=== PATIENT | female | born 1950 | race African-American/Black ===

== ENCOUNTER 2023-11-18 00:53 | Emergency (ER) | payer MEDICARE, OTHER ==
[~2023-11-18] VITALS: Ht 152.4 cm; Wt 68.0 kg
[2023-11-18 02:08] LABS: BASOPHILS % (AUTO) 0.1 % (0.0-2.0); EOSINOPHILS # (AUTO) 0.1 K/uL (0.0-0.7); EOSINOPHILS % (AUTO) 1.1 % (0.0-6.0); HEMATOCRIT 41 % (33-45); HEMOGLOBIN 13.6 g/dL (11.5-14.8); LYMPHOCYTES % (AUTO) 17.1 % (20.0-44.0); MEAN CORPUSCULAR HEMOGLOBIN 33 PG (26.0-33.0); MEAN CORPUSCULAR HGB CONC 33 g/dl (31.0-36.0); MEAN CORPUSCULAR VOLUME 100 fL (82-100); MONOCYTES # (AUTO) 0.4 K/uL (0.1-1.30); MONOCYTES % (AUTO) 6.2 % (2.0-12.0); NEUTROPHILS # (AUTO) 4.4 K/uL (1.8-8.9); NEUTROPHILS % (AUTO) 75.5 % (43.0-81.0); PLATELET COUNT (AUTO) 241 K/uL (150-450); RED BLOOD CELL COUNT(AUTO) 4.16 MIL/uL (4.0-5.2); RED CELL DISTRIBUTION WIDTH 13.4 % (11.5-15.0); WHITE BLOOD COUNT (AUTO) 5.8 K/uL (4.3-11.0)
[2023-11-18 02:22] LABS: ALANINE AMINOTRANSFERASE 40 U/L (12-78); ALBUMIN 3.5 g/dL (3.4-5.0); ALKALINE PHOSPHATASE 89 U/L (46-116); ASPARTATE AMINOTRANSFERASE 25 U/L (15-37); BILIRUBIN,TOTAL 0.6 mg/dL (0.2-1.0); CALCIUM, SERUM 9.6 mg/dL (8.5-10.1); CARBON DIOXIDE 21 mmol/L (21-32); CHLORIDE 99 mmol/L (98-107); CREATININE 1.1 mg/dL (0.6-1.3); GLUCOSE 202 mg/dL (74-106); SODIUM SERUM 135 mmol/L (136-145); TOTAL PROTEIN, SERUM 7.5 g/dL (6.4-8.2); UREA NITROGEN, BLOOD 7 mg/dL (7-18)
[2023-11-18 02:23] LABS: POTASSIUM 2.7 mmol/L (3.5-5.1)
[2023-11-18] MEDS ORDERED: POTASSIUM CL. PREMIX PERIPHER. 100 ML ONE (02:48)
[2023-11-18 02:49] LABS: ADD URINE CULTURE NO; APPEARANCE,URINE CLEAR (CLEAR); BACTERIA,URINE None seen /HPF (None Seen); BILIRUBIN,URINE NEGATIVE (NEGATIVE); BLOOD, URINE TRACE-INTA Ery/uL (NEGATIVE); COLOR,URINE YELLOW (YELLOW); KETONES,URINE 1+ mg/dL (NEGATIVE); LEUKOCYTE ESTERASE ,URINE NEGATIVE (NEGATIVE); NITRITE, URINE NEGATIVE (NEGATIVE); PH,URINE 6.5 (5.0-8.0); PROTEIN,URINE NEGATIVE (NEGATIVE); RBC,URINE 0-2 /HPF (0-2); SQUAMOUS EPITHELIAL CELL,UR Few /HPF (None Seen); UGLUCOSE NEGATIVE (NEGATIVE); UROBILINOGEN,URINE 0.2 EU/dL (0.2); WBC,URINE 0-2 /HPF (0-3)
[2023-11-18 02:54] LABS: ALCOHOL, BLOOD < 3 mg/dL (0-10)
[2023-11-18] MEDS: POTASSIUM CL. PREMIX PERIPHER. 50 ML IV SCH (03:10)
[2023-11-18] MEDS ORDERED: ALPR0.25 PO (04:54)
[2023-11-18] MEDS ORDERED: ALPRAZOLAM 0.25 MG TABLET ONE (05:17)
[2023-11-18] MEDS: ALPRAZOLAM 0.25 MG TABLET PO ONE (05:32)
[2023-11-18 06:23] VITALS: BP 139/80; TEMP 98.9; O2SAT 98
== END 2023-11-18 06:24 | disposition home or self-care (01) ==
LOC: ER 01:00
DX: F41.9 Anxiety disorder, unspecified (principal); E87.6 Hypokalemia; F32.A Depression, unspecified
CPT/HCPCS: 99284; 96365; 96366; 85025; 83735; 81001; 36415; 80053; 80320; J7030; J3480; A4223; G0480

== ENCOUNTER 2023-12-25 16:41 | Inpatient (IN) | payer MEDICARE, OTHER ==
[~2023-12-25] VITALS: Ht 152.4 cm; Wt 58.5 kg
[2023-12-25] MEDS ORDERED: ONDANSETRON HCL/PF 4 MG/2 ML VIAL ONE (17:41)
[2023-12-25] MEDS: IV NS 0.9% 1,000 ML BAG IV ONE (18:13)
[2023-12-25] MEDS ORDERED: CEFTRIAXONE 1GM BAG (ER ONLY) 50 ML IV ONE (18:14)
[2023-12-25] MEDS: CEFTRIAXONE 1GM BAG (ER ONLY) 50 ML IV ONE (18:16)
[2023-12-25] MEDS ORDERED: ESZO3TAB27 PO (18:24)
[2023-12-25] MEDS ORDERED: FLUO20CA36 PO (18:24)
[2023-12-25] MEDS ORDERED: ALPR1TAB2 PO (18:24)
[2023-12-25 18:25] LABS: BASOPHILS % (AUTO) 0.3 % (0.0-2.0); EOSINOPHILS % (AUTO) 0.1 % (0.0-6.0); HEMATOCRIT 42 % (33-45); HEMOGLOBIN 14.3 g/dL (11.5-14.8); LYMPHOCYTES % (AUTO) 20.9 % (20.0-44.0); MEAN CORPUSCULAR HEMOGLOBIN 32 PG (26.0-33.0); MEAN CORPUSCULAR HGB CONC 34 g/dl (31.0-36.0); MEAN CORPUSCULAR VOLUME 95 fL (82-100); MONOCYTES # (AUTO) 0.4 K/uL (0.1-1.30); MONOCYTES % (AUTO) 7.5 % (2.0-12.0); NEUTROPHILS # (AUTO) 3.5 K/uL (1.8-8.9); NEUTROPHILS % (AUTO) 71.2 % (43.0-81.0); PLATELET COUNT (AUTO) 246 K/uL (150-450); RED BLOOD CELL COUNT(AUTO) 4.45 MIL/uL (4.0-5.2); RED CELL DISTRIBUTION WIDTH 14.7 % (11.5-15.0)
[2023-12-25 18:40] LABS: CALCIUM, SERUM 9.3 mg/dL (8.5-10.1); CARBON DIOXIDE 22 mmol/L (21-32); CHLORIDE 101 mmol/L (98-107); CREATININE 1.1 mg/dL (0.6-1.3); GLUCOSE 137 mg/dL (74-106); POTASSIUM 4.2 mmol/L (3.5-5.1); SODIUM SERUM 133 mmol/L (136-145); UREA NITROGEN, BLOOD 11 mg/dL (7-18)
[2023-12-25] MEDS: AZITHROMYCIN 500 MG in IV D5W 250 ML IV ONE (18:43)
[2023-12-25 18:44] LABS: INR 1.01 (0.91-1.10); PARTIAL THROMBOPLASTIN TIME 21.4 SEC (24.3-34.3); PROTHROMBIN TIME 10.4 SECS (9.2-11.1)
[2023-12-25 18:50] LABS: LACTIC ACID 2.5 mmol/L (0.4-2.0)
[2023-12-25 18:52] LABS: ALANINE AMINOTRANSFERASE 69 U/L (12-78); ALBUMIN 3.1 g/dL (3.4-5.0); ALKALINE PHOSPHATASE 118 U/L (46-116); ASPARTATE AMINOTRANSFERASE 86 U/L (15-37); BILIRUBIN,DIRECT 0.1 mg/dL (0.0-0.2); TOTAL PROTEIN, SERUM 7.8 g/dL (6.4-8.2)
[2023-12-25 22:49] LABS: APPEARANCE,URINE CLEAR (CLEAR); BILIRUBIN,URINE NEGATIVE (NEGATIVE); BLOOD, URINE NEGATIVE Ery/uL (NEGATIVE); COLOR,URINE YELLOW (YELLOW); KETONES,URINE NEGATIVE (NEGATIVE); LEUKOCYTE ESTERASE ,URINE NEGATIVE (NEGATIVE); NITRITE, URINE NEGATIVE (NEGATIVE); PH,URINE 6.5 (5.0-8.0); PROTEIN,URINE NEGATIVE (NEGATIVE); UGLUCOSE NEGATIVE (NEGATIVE); UROBILINOGEN,URINE 0.2 EU/dL (0.2)
[2023-12-26] VITALS: BP 132/61; TEMP 99.9; O2SAT 95
[2023-12-26] MEDS ORDERED: AZITHROMYCIN 250 MG TABLET PO ONE (00:30)
[2023-12-26] MEDS ORDERED: Z GUARD REMEDY 4 OZ OINT TP PRN (00:30)
[2023-12-26] MEDS: ALPRAZOLAM 1 MG TABLET PO PRN (00:52)
[2023-12-26] MEDS: ENOXAPARIN SODIUM 40 MG/0.4 ML DISP.SYRIN SQ SCH (00:52)
[2023-12-26 04:00] VITALS: BP 100/52; TEMP 99.1; O2SAT 94
[2023-12-26] MEDS: PANTOPRAZOLE 40 MG TABLET.DR PO SCH (07:45)
[2023-12-26 08:00] VITALS: BP 126/74; TEMP 99.1; O2SAT 93
[2023-12-26] MEDS: GUAIFENESIN LA 600 MG TABLET.SA PO SCH (08:50)
[2023-12-26] MEDS: FLUOXETINE HCL 20 MG CAPSULE PO SCH (08:50)
[2023-12-26] MEDS: AZITHROMYCIN 250 MG TABLET PO SCH (08:50)
[2023-12-26 13:00] VITALS: BP 119/75; TEMP 98.5; O2SAT 94
[2023-12-26 21:00] VITALS: BP 137/69; TEMP 98.2; O2SAT 92
[2023-12-26] MEDS: CEFTRIAXONE 1 G in IV D5W 50 ML IV SCH (21:33)
[2023-12-27 04:00] VITALS: BP 104/73; TEMP 98.1; O2SAT 93
[2023-12-27 05:00] VITALS: BP 104/73; TEMP 98.1; O2SAT 93
[2023-12-27 07:22] LABS: BASOPHILS % (AUTO) 0.3 % (0.0-2.0); EOSINOPHILS % (AUTO) 0.8 % (0.0-6.0); HEMATOCRIT 39 % (33-45); HEMOGLOBIN 13.1 g/dL (11.5-14.8); LYMPHOCYTES # (AUTO) 1.4 K/uL (0.8-4.8); LYMPHOCYTES % (AUTO) 42.8 % (20.0-44.0); MEAN CORPUSCULAR HEMOGLOBIN 33 PG (26.0-33.0); MEAN CORPUSCULAR HGB CONC 34 g/dl (31.0-36.0); MEAN CORPUSCULAR VOLUME 97 fL (82-100); MONOCYTES # (AUTO) 0.4 K/uL (0.1-1.30); MONOCYTES % (AUTO) 13.1 % (2.0-12.0); NEUTROPHILS # (AUTO) 1.4 K/uL (1.8-8.9); PLATELET COUNT (AUTO) 240 K/uL (150-450); RED BLOOD CELL COUNT(AUTO) 4.03 MIL/uL (4.0-5.2); RED CELL DISTRIBUTION WIDTH 14.1 % (11.5-15.0); WHITE BLOOD COUNT (AUTO) 3.4 K/uL (4.3-11.0)
[2023-12-27 08:05] LABS: CALCIUM, SERUM 8.2 mg/dL (8.5-10.1); CARBON DIOXIDE 23 mmol/L (21-32); CHLORIDE 107 mmol/L (98-107); CREATININE 0.8 mg/dL (0.6-1.3); GLUCOSE 112 mg/dL (74-106); PHOSPHORUS 3.3 mg/dL (2.5-4.9); SODIUM SERUM 141 mmol/L (136-145); UREA NITROGEN, BLOOD 8 mg/dL (7-18)
[2023-12-27 08:11] LABS: POTASSIUM 2.8 mmol/L (3.5-5.1)
[2023-12-27] MEDS: POTASSIUM CHLORIDE 20 MEQ TAB.PRT.SR PO SCH (10:56)
[2023-12-27 12:00] VITALS: BP 104/68; TEMP 98.4; O2SAT 97
[2023-12-27] MEDS: ONDANSETRON HCL/PF 4 MG/2 ML VIAL IVP PRN (12:22)
[2023-12-27 21:00] VITALS: BP 110/68; TEMP 98.4; O2SAT 97
[2023-12-27] MEDS: TEMAZEPAM 7.5 MG CAPSULE PO PRN (21:51)
[2023-12-28 05:00] VITALS: BP 124/74; TEMP 97.8; O2SAT 97
[2023-12-28 07:26] LABS: BASOPHILS % (AUTO) 0.4 % (0.0-2.0); EOSINOPHILS # (AUTO) 0.1 K/uL (0.0-0.7); EOSINOPHILS % (AUTO) 1.8 % (0.0-6.0); HEMATOCRIT 37 % (33-45); HEMOGLOBIN 12.3 g/dL (11.5-14.8); LYMPHOCYTES # (AUTO) 1.3 K/uL (0.8-4.8); LYMPHOCYTES % (AUTO) 27.7 % (20.0-44.0); MEAN CORPUSCULAR HEMOGLOBIN 33 PG (26.0-33.0); MEAN CORPUSCULAR HGB CONC 34 g/dl (31.0-36.0); MEAN CORPUSCULAR VOLUME 98 fL (82-100); MONOCYTES # (AUTO) 0.6 K/uL (0.1-1.30); MONOCYTES % (AUTO) 12.3 % (2.0-12.0); NEUTROPHILS # (AUTO) 2.7 K/uL (1.8-8.9); NEUTROPHILS % (AUTO) 57.8 % (43.0-81.0); PLATELET COUNT (AUTO) 254 K/uL (150-450); RED BLOOD CELL COUNT(AUTO) 3.75 MIL/uL (4.0-5.2); RED CELL DISTRIBUTION WIDTH 14.2 % (11.5-15.0); WHITE BLOOD COUNT (AUTO) 4.7 K/uL (4.3-11.0)
[2023-12-28 08:12] LABS: CALCIUM, SERUM 8.3 mg/dL (8.5-10.1); CREATININE 0.8 mg/dL (0.6-1.3); MAGNESIUM 2.2 mg/dL (1.8-2.4); POTASSIUM 3.4 mmol/L (3.5-5.1)
[2023-12-28] MEDS ORDERED: POTASSIUM CHLORIDE 20 MEQ TAB.PRT.SR PO ONE (12:30)
[2023-12-28 13:00] VITALS: BP 105/69; TEMP 98.7; O2SAT 97
[2023-12-28] MEDS: POTASSIUM CHLORIDE 20 MEQ TAB.PRT.SR PO ONE (13:03)
[2023-12-28 21:00] VITALS: BP 125/68; TEMP 98.8; O2SAT 96
[2023-12-28] MEDS: MEGESTROL ACETATE 40 MG TABLET PO SCH (21:30)
[2023-12-28] MEDS: ACETAMINOPHEN 325 MG TABLET PO PRN (21:33)
[2023-12-28] MEDS: ALPRAZOLAM 1 MG TABLET PO PRN (21:58)
[2023-12-29 05:00] VITALS: BP 121/65; TEMP 99; O2SAT 96
[2023-12-29 08:47] LABS: BASOPHILS % (AUTO) 0.3 % (0.0-2.0); EOSINOPHILS # (AUTO) 0.1 K/uL (0.0-0.7); EOSINOPHILS % (AUTO) 2.4 % (0.0-6.0); HEMATOCRIT 37 % (33-45); HEMOGLOBIN 12.1 g/dL (11.5-14.8); LYMPHOCYTES # (AUTO) 1.1 K/uL (0.8-4.8); LYMPHOCYTES % (AUTO) 22.1 % (20.0-44.0); MEAN CORPUSCULAR HEMOGLOBIN 33 PG (26.0-33.0); MEAN CORPUSCULAR HGB CONC 33 g/dl (31.0-36.0); MEAN CORPUSCULAR VOLUME 99 fL (82-100); MONOCYTES # (AUTO) 0.6 K/uL (0.1-1.30); MONOCYTES % (AUTO) 11.7 % (2.0-12.0); NEUTROPHILS # (AUTO) 3.1 K/uL (1.8-8.9); NEUTROPHILS % (AUTO) 63.5 % (43.0-81.0); PLATELET COUNT (AUTO) 285 K/uL (150-450); RED CELL DISTRIBUTION WIDTH 14.6 % (11.5-15.0); WHITE BLOOD COUNT (AUTO) 4.8 K/uL (4.3-11.0)
[2023-12-29 09:55] LABS: CALCIUM, SERUM 8.4 mg/dL (8.5-10.1); CARBON DIOXIDE 22 mmol/L (21-32); CHLORIDE 106 mmol/L (98-107); CREATININE 0.8 mg/dL (0.6-1.3); GLUCOSE 122 mg/dL (74-106); PHOSPHORUS 3.2 mg/dL (2.5-4.9); POTASSIUM 3.1 mmol/L (3.5-5.1); SODIUM SERUM 139 mmol/L (136-145); UREA NITROGEN, BLOOD 7 mg/dL (7-18)
[2023-12-29 09:57] LABS: PLATELET ESTIMATE LARGE PLATELET SEEN
[2023-12-29] MEDS: METRONIDAZOLE 500 MG TABLET PO SCH (20:42)
[2023-12-29 21:00] VITALS: BP 123/66; TEMP 98.1; O2SAT 93
[2023-12-29] MEDS: IV NS 0.9% 1,000 ML IV PRN (22:12)
[2023-12-30 05:00] VITALS: BP 116/54; TEMP 98.2; O2SAT 96
[2023-12-30 08:00] VITALS: BP 109/67; TEMP 98.3; O2SAT 92
[2023-12-30 08:17] LABS: BASOPHILS % (AUTO) 0.4 % (0.0-2.0); EOSINOPHILS # (AUTO) 0.1 K/uL (0.0-0.7); EOSINOPHILS % (AUTO) 2.1 % (0.0-6.0); HEMATOCRIT 33 % (33-45); LYMPHOCYTES # (AUTO) 1.1 K/uL (0.8-4.8); LYMPHOCYTES % (AUTO) 20.9 % (20.0-44.0); MEAN CORPUSCULAR HEMOGLOBIN 33 PG (26.0-33.0); MEAN CORPUSCULAR HGB CONC 34 g/dl (31.0-36.0); MEAN CORPUSCULAR VOLUME 97 fL (82-100); MONOCYTES # (AUTO) 0.6 K/uL (0.1-1.30); MONOCYTES % (AUTO) 12.1 % (2.0-12.0); NEUTROPHILS # (AUTO) 3.3 K/uL (1.8-8.9); NEUTROPHILS % (AUTO) 64.5 % (43.0-81.0); PLATELET COUNT (AUTO) 303 K/uL (150-450); RED BLOOD CELL COUNT(AUTO) 3.37 MIL/uL (4.0-5.2); RED CELL DISTRIBUTION WIDTH 14.3 % (11.5-15.0); WHITE BLOOD COUNT (AUTO) 5.1 K/uL (4.3-11.0)
[2023-12-30 08:51] LABS: CALCIUM, SERUM 8.6 mg/dL (8.5-10.1); CREATININE 0.7 mg/dL (0.6-1.3); PHOSPHORUS 3.1 mg/dL (2.5-4.9); POTASSIUM 3.1 mmol/L (3.5-5.1)
[2023-12-30] MEDS ORDERED: POTASSIUM CHLORIDE 20 MEQ TAB.PRT.SR PO SCH (13:30)
[2023-12-30] MEDS: POTASSIUM CHLORIDE 20 MEQ TAB.PRT.SR PO ONE (14:00)
[2023-12-30 16:00] VITALS: BP 120/65; TEMP 98.1; O2SAT 96
[2023-12-30 21:00] VITALS: BP 129/57; TEMP 98.8; O2SAT 95
[2023-12-31 05:00] VITALS: BP 124/67; TEMP 98.2; O2SAT 99
[2023-12-31 07:31] LABS: BASOPHILS % (AUTO) 0.7 % (0.0-2.0); EOSINOPHILS # (AUTO) 0.2 K/uL (0.0-0.7); EOSINOPHILS % (AUTO) 2.5 % (0.0-6.0); HEMATOCRIT 33 % (33-45); HEMOGLOBIN 11.2 g/dL (11.5-14.8); LYMPHOCYTES % (AUTO) 16.6 % (20.0-44.0); MEAN CORPUSCULAR HEMOGLOBIN 33 PG (26.0-33.0); MEAN CORPUSCULAR HGB CONC 34 g/dl (31.0-36.0); MEAN CORPUSCULAR VOLUME 98 fL (82-100); MONOCYTES # (AUTO) 0.8 K/uL (0.1-1.30); NEUTROPHILS # (AUTO) 4.1 K/uL (1.8-8.9); NEUTROPHILS % (AUTO) 67.2 % (43.0-81.0); PLATELET COUNT (AUTO) 314 K/uL (150-450); RED BLOOD CELL COUNT(AUTO) 3.41 MIL/uL (4.0-5.2); RED CELL DISTRIBUTION WIDTH 14.3 % (11.5-15.0); WHITE BLOOD COUNT (AUTO) 6.1 K/uL (4.3-11.0)
[2023-12-31 07:43] LABS: CALCIUM, SERUM 8.8 mg/dL (8.5-10.1); CARBON DIOXIDE 19 mmol/L (21-32); CHLORIDE 108 mmol/L (98-107); CREATININE 0.8 mg/dL (0.6-1.3); GLUCOSE 174 mg/dL (74-106); PHOSPHORUS 3.1 mg/dL (2.5-4.9); POTASSIUM 3.7 mmol/L (3.5-5.1); SODIUM SERUM 139 mmol/L (136-145); UREA NITROGEN, BLOOD 3 mg/dL (7-18)
[2023-12-31] MEDS ORDERED: METR500T PO (12:51)
[2023-12-31] MEDS ORDERED: ALLA266C2 TP (12:54)
[2023-12-31 13:00] VITALS: BP 108/56; TEMP 98; O2SAT 96
[2023-12-31 13:23] LABS: EOSINOPHILS % (MANUAL) 3 % (0-4); LYMPHOCYTES % (MANUAL) 17 % (16-48); MONOCYTES % (MANUAL) 12 % (0-11.0); NEUTROPHILS % (MANUAL) 68 (42-76); PLATELET ESTIMATE ADEQUATE
== END 2023-12-31 15:05 | disposition home or self-care (01) | DRG 871 ==
LOC: ER 16:48 → MEDSG1 22:45
PROVIDERS: ADMIT Nurse Practitioner Acute Care; ATTEND Nurse Practitioner Family
DX: A41.89 Other specified sepsis (principal); J12.82 Pneumonia due to coronavirus disease 2019; U07.1 COVID-19; J15.9 Unspecified bacterial pneumonia; E87.1 Hypo-osmolality and hyponatremia; E87.20 Acidosis, unspecified; F13.20 Sedative, hypnotic or anxiolytic dependence, uncomplicated; E88.09 Other disorders of plasma-protein metabolism, not elsewhere classified; F41.9 Anxiety disorder, unspecified; K70.9 Alcoholic liver disease, unspecified; F17.210 Nicotine dependence, cigarettes, uncomplicated; R74.01 Elevation of levels of liver transaminase levels; R73.9 Hyperglycemia, unspecified; G47.00 Insomnia, unspecified; F10.20 Alcohol dependence, uncomplicated
CPT/HCPCS: 36415; 71045-TC; 71250-TC; 74018; 80048-TC; 80076-TC; 83605-TC; 83735-TC; 84100-TC; 84484-TC; 85025-TC; 85378-TC; 85730-TC; 86140-TC; 87040-TC; 87086-TC; 97110-TC; 97116-TC; 97530-TC; G0378; J0456; J0696; J1650; J2405; J3490; J7030; J7060

== ENCOUNTER 2024-11-14 18:45 | Inpatient (IN) | payer MEDICARE, OTHER ==
[~2024-11-14] VITALS: Ht 160 cm; Wt 63.5 kg
[~2024-11-14 18:45] MED LIST: ALLA266C2 TP; ALPR1TAB2 PO; ESZO3TAB27 PO; FLUO20CA36 PO; METR500T PO
[2024-11-14 19:51] LABS: BASOPHILS # (AUTO) 0.1 K/uL (0.0-0.2); BASOPHILS % (AUTO) 0.4 % (0.0-2.0); EOSINOPHILS % (AUTO) 0.3 % (0.0-6.0); HEMATOCRIT 34 % (33-45); HEMOGLOBIN 10.7 g/dL (11.5-14.8); LYMPHOCYTES # (AUTO) 0.9 K/uL (0.8-4.8); MEAN CORPUSCULAR HEMOGLOBIN 32 PG (26.0-33.0); MEAN CORPUSCULAR HGB CONC 32 g/dl (31.0-36.0); MEAN CORPUSCULAR VOLUME 101 fL (82-100); MONOCYTES # (AUTO) 0.6 K/uL (0.1-1.30); MONOCYTES % (AUTO) 4.2 % (2.0-12.0); NEUTROPHILS # (AUTO) 13.1 K/uL (1.8-8.9); NEUTROPHILS % (AUTO) 89.1 % (43.0-81.0); PLATELET COUNT (AUTO) 266 K/uL (150-450); RED BLOOD CELL COUNT(AUTO) 3.36 MIL/uL (4.0-5.2); RED CELL DISTRIBUTION WIDTH 14.7 % (11.5-15.0); WHITE BLOOD COUNT (AUTO) 14.7 K/uL (4.3-11.0)
[2024-11-14] MEDS: IV NS 0.9% 1,000 ML BAG IV ONE (20:15)
[2024-11-14 20:29] LABS: CALCIUM, SERUM 9.9 mg/dL (8.5-10.1); CARBON DIOXIDE 17 mmol/L (21-32); CHLORIDE 111 mmol/L (98-107); CREATININE 0.8 mg/dL (0.6-1.3); GLUCOSE 125 mg/dL (74-106); POTASSIUM 3.3 mmol/L (3.5-5.1); SODIUM SERUM 145 mmol/L (136-145); UREA NITROGEN, BLOOD 8 mg/dL (7-18)
[2024-11-14] MEDS ORDERED: CEFEPIME 1 GM VIAL ONE (20:54)
[2024-11-14 21:01] LABS: APPEARANCE,URINE CLEAR (CLEAR); BILIRUBIN,URINE NEGATIVE (NEGATIVE); BLOOD, URINE NEGATIVE Ery/uL (NEGATIVE); COLOR,URINE YELLOW (YELLOW); KETONES,URINE NEGATIVE (NEGATIVE); LEUKOCYTE ESTERASE ,URINE NEGATIVE (NEGATIVE); NITRITE, URINE NEGATIVE (NEGATIVE); PROTEIN,URINE NEGATIVE (NEGATIVE); UGLUCOSE NEGATIVE (NEGATIVE); UROBILINOGEN,URINE 0.2 EU/dL (0.2)
[2024-11-14] MEDS: CEFEPIME 1 GM in IV D5W 50 ML IV ONE (21:03)
[2024-11-14 21:05] LABS: LACTIC ACID 4.4 mmol/L (0.4-2.0)
[2024-11-14 22:30] VITALS: BP 132/81; TEMP 97.7; O2SAT 98
[2024-11-14] MEDS ORDERED: MAGNESIUM HYDROXIDE 30 ML UDC PO PRN (23:00)
[2024-11-14] MEDS ORDERED: ONDANSETRON HCL/PF 4 MG/2 ML VIAL IVP PRN (23:00)
[2024-11-14] MEDS ORDERED: MAG HYDROX/AL HYDROX/SIMETH 30 ML UDC PO PRN (23:00)
[2024-11-14] MEDS ORDERED: CEFTRIAXONE 1GM BAG (ER ONLY) 50 ML IV ONE (23:11)
[2024-11-14] MEDS ORDERED: AZITHROMYCIN 500 MG VIAL ONE (23:25)
[2024-11-14] MEDS: CEFTRIAXONE 1 G in IV D5W 50 ML IV ONE (23:36)
[2024-11-14] MEDS: AZITHROMYCIN 500 MG in IV D5W 250 ML IV ONE (23:56)
[2024-11-15 00:17] LABS: BILIRUBIN,DIRECT 0.3 mg/dL (0.0-0.2)
[2024-11-15 00:23] LABS: LACTIC ACID REFLEX 3.6 mmol/L (0.4-1.9)
[2024-11-15] MEDS ORDERED: Medication Not On Formulary EA (Eszopiclone (Lunesta) 3 MG) PO PRN (00:30)
[2024-11-15] MEDS: ALPRAZOLAM 1 MG TABLET PO PRN (08:20)
[2024-11-15] MEDS: PANTOPRAZOLE 40 MG TABLET.DR PO SCH (08:20)
[2024-11-15] MEDS: FLUOXETINE HCL 20 MG CAPSULE PO SCH (08:20)
[2024-11-15] MEDS: METRONIDAZOLE 500 MG TABLET PO SCH (08:20)
[2024-11-15] MEDS: ENOXAPARIN SODIUM 40 MG/0.4 ML DISP.SYRIN SQ SCH (08:24)
[2024-11-15] MEDS: Z GUARD REMEDY 4 OZ OINT TP PRN (10:05)
[2024-11-15] MEDS: Z GUARD REMEDY 4 OZ OINT TP SCH (10:14)
[2024-11-15 16:00] VITALS: BP 112/57; TEMP 98.1; O2SAT 98
[2024-11-15 16:13] LABS: BASOPHILS % (AUTO) 0.2 % (0.0-2.0); EOSINOPHILS # (AUTO) 0.1 K/uL (0.0-0.7); HEMATOCRIT 27 % (33-45); HEMOGLOBIN 8.9 g/dL (11.5-14.8); LYMPHOCYTES # (AUTO) 1.9 K/uL (0.8-4.8); LYMPHOCYTES % (AUTO) 18.8 % (20.0-44.0); MEAN CORPUSCULAR HEMOGLOBIN 33 PG (26.0-33.0); MEAN CORPUSCULAR HGB CONC 34 g/dl (31.0-36.0); MEAN CORPUSCULAR VOLUME 99 fL (82-100); MONOCYTES # (AUTO) 0.8 K/uL (0.1-1.30); MONOCYTES % (AUTO) 7.7 % (2.0-12.0); NEUTROPHILS # (AUTO) 7.2 K/uL (1.8-8.9); NEUTROPHILS % (AUTO) 72.3 % (43.0-81.0); PLATELET COUNT (AUTO) 240 K/uL (150-450); RED BLOOD CELL COUNT(AUTO) 2.68 MIL/uL (4.0-5.2); RED CELL DISTRIBUTION WIDTH 14.5 % (11.5-15.0)
[2024-11-15 16:31] LABS: CREATININE 0.7 mg/dL (0.6-1.3); PHOSPHORUS 3.3 mg/dL (2.5-4.9); POTASSIUM 3.1 mmol/L (3.5-5.1)
[2024-11-15 16:43] LABS: THYROID STIMULATING HORMONE 1.81 uIU/mL (0.358-3.74)
[2024-11-15] MEDS: POTASSIUM CHLORIDE 20 MEQ TAB.PRT.SR PO ONE (19:14)
[2024-11-15 20:00] VITALS: BP 134/61; TEMP 98.4; O2SAT 100
[2024-11-15] MEDS: CEFTRIAXONE 1 G in IV D5W 50 ML IV SCH (22:04)
[2024-11-15] MEDS: AZITHROMYCIN 500 MG in IV D5W 250 ML IV SCH (22:33)
[2024-11-15] MEDS: ZOLPIDEM TARTRATE 5 MG TABLET PO PRN (23:29)
[2024-11-16] MEDS ORDERED: POTASSIUM CL. PREMIX PERIPHER. 50 ML IV SCH ×2 (01:30→02:00)
[2024-11-16] MEDS: ACETAMINOPHEN 325 MG TABLET PO PRN (01:36)
[2024-11-16] MEDS: POTASSIUM CL. PREMIX PERIPHER. 50 ML IV SCH ×2 (02:19→03:58)
[2024-11-16 07:00] VITALS: BP 104/49; TEMP 97.9; O2SAT 98
[2024-11-16 16:00] VITALS: BP 132/63; TEMP 98.4; O2SAT 97
[2024-11-16 16:59] LABS: BASOPHILS % (AUTO) 0.2 % (0.0-2.0); EOSINOPHILS # (AUTO) 0.2 K/uL (0.0-0.7); EOSINOPHILS % (AUTO) 3.1 % (0.0-6.0); HEMATOCRIT 27 % (33-45); HEMOGLOBIN 8.9 g/dL (11.5-14.8); LYMPHOCYTES # (AUTO) 1.2 K/uL (0.8-4.8); LYMPHOCYTES % (AUTO) 15.9 % (20.0-44.0); MEAN CORPUSCULAR HEMOGLOBIN 33 PG (26.0-33.0); MEAN CORPUSCULAR HGB CONC 33 g/dl (31.0-36.0); MEAN CORPUSCULAR VOLUME 100 fL (82-100); MONOCYTES # (AUTO) 0.6 K/uL (0.1-1.30); MONOCYTES % (AUTO) 7.8 % (2.0-12.0); NEUTROPHILS # (AUTO) 5.7 K/uL (1.8-8.9); PLATELET COUNT (AUTO) 242 K/uL (150-450); RED BLOOD CELL COUNT(AUTO) 2.73 MIL/uL (4.0-5.2); RED CELL DISTRIBUTION WIDTH 14.5 % (11.5-15.0); WHITE BLOOD COUNT (AUTO) 7.7 K/uL (4.3-11.0)
[2024-11-16 17:12] LABS: CREATININE 0.7 mg/dL (0.6-1.3); POTASSIUM 3.5 mmol/L (3.5-5.1)
[2024-11-16 20:21] VITALS: BP 123/56; TEMP 97.7; O2SAT 98
[2024-11-17 05:36] VITALS: BP 107/64; TEMP 97.7; O2SAT 98
[2024-11-17 07:00] VITALS: BP 144/74; TEMP 97.9; O2SAT 99
[2024-11-17 08:49] LABS: BASOPHILS # (AUTO) 0.1 K/uL (0.0-0.2); BASOPHILS % (AUTO) 0.5 % (0.0-2.0); EOSINOPHILS # (AUTO) 0.4 K/uL (0.0-0.7); EOSINOPHILS % (AUTO) 2.1 % (0.0-6.0); HEMATOCRIT 24 % (33-45); HEMOGLOBIN 7.6 g/dL (11.5-14.8); LYMPHOCYTES # (AUTO) 1.1 K/uL (0.8-4.8); LYMPHOCYTES % (AUTO) 6.1 % (20.0-44.0); MEAN CORPUSCULAR HEMOGLOBIN 26 PG (26.0-33.0); MEAN CORPUSCULAR HGB CONC 31 g/dl (31.0-36.0); MEAN CORPUSCULAR VOLUME 81 fL (82-100); MONOCYTES # (AUTO) 0.8 K/uL (0.1-1.30); MONOCYTES % (AUTO) 4.4 % (2.0-12.0); NEUTROPHILS # (AUTO) 15.4 K/uL (1.8-8.9); NEUTROPHILS % (AUTO) 86.9 % (43.0-81.0); PLATELET COUNT (AUTO) 290 K/uL (150-450); RED BLOOD CELL COUNT(AUTO) 2.97 MIL/uL (4.0-5.2); RED CELL DISTRIBUTION WIDTH 19.7 % (11.5-15.0); WHITE BLOOD COUNT (AUTO) 17.7 K/uL (4.3-11.0)
[2024-11-17 11:37] LABS: CALCIUM, SERUM 8.9 mg/dL (8.5-10.1); CREATININE 0.8 mg/dL (0.6-1.3); POTASSIUM 3.1 mmol/L (3.5-5.1)
[2024-11-17 16:00] VITALS: BP 104/94; TEMP 98.2; O2SAT 96
[2024-11-17] MEDS: POTASSIUM CHLORIDE 20 MEQ TAB.PRT.SR PO ONE (18:03)
[2024-11-17 20:00] VITALS: BP 107/57; TEMP 97.7; O2SAT 97
[2024-11-18 07:44] LABS: BASOPHILS % (AUTO) 0.3 % (0.0-2.0); CALCIUM, SERUM 8.8 mg/dL (8.5-10.1); CREATININE 0.7 mg/dL (0.6-1.3); EOSINOPHILS # (AUTO) 0.2 K/uL (0.0-0.7); EOSINOPHILS % (AUTO) 3.9 % (0.0-6.0); HEMATOCRIT 27 % (33-45); HEMOGLOBIN 8.8 g/dL (11.5-14.8); LYMPHOCYTES # (AUTO) 2.1 K/uL (0.8-4.8); LYMPHOCYTES % (AUTO) 34.9 % (20.0-44.0); MEAN CORPUSCULAR HEMOGLOBIN 33 PG (26.0-33.0); MEAN CORPUSCULAR HGB CONC 33 g/dl (31.0-36.0); MEAN CORPUSCULAR VOLUME 99 fL (82-100); MONOCYTES # (AUTO) 0.7 K/uL (0.1-1.30); NEUTROPHILS % (AUTO) 49.9 % (43.0-81.0); PLATELET COUNT (AUTO) 253 K/uL (150-450); POTASSIUM 3.3 mmol/L (3.5-5.1); RED CELL DISTRIBUTION WIDTH 13.8 % (11.5-15.0); WHITE BLOOD COUNT (AUTO) 6.1 K/uL (4.3-11.0)
[2024-11-18] MEDS: POTASSIUM CHLORIDE 20 MEQ TAB.PRT.SR PO SCH (10:27)
== END 2024-11-18 18:07 | DRG 194 ==
LOC: ER 20:09 → MED 21:05
PROVIDERS: ADMIT Student in an Organized Health Care Education/Training Program; ATTEND Nurse Practitioner Acute Care
DX: J15.9 Unspecified bacterial pneumonia (principal); E87.20 Acidosis, unspecified; F33.2 Major depressive disorder, recurrent severe without psychotic features; I69.354 Hemiplegia and hemiparesis following cerebral infarction affecting left non-dominant side; F41.9 Anxiety disorder, unspecified; Z79.899 Other long term (current) drug therapy; G47.00 Insomnia, unspecified; D63.8 Anemia in other chronic diseases classified elsewhere; F17.200 Nicotine dependence, unspecified, uncomplicated; W18.30XA Fall on same level, unspecified, initial encounter; Y92.9 Unspecified place or not applicable; F13.21 Sedative, hypnotic or anxiolytic dependence, in remission
CPT/HCPCS: 36415; 70450-TC; 71045-TC; 80048-TC; 80061-TC; 82247-TC; 82248-TC; 82550-TC; 83605-TC; 83735-TC; 83880; 84100-TC; 84443-TC; 84484-TC; 85025-TC; 86850-TC; 87040-TC; 87086-TC; 93307-TC; 97110-TC; 97116-TC; 97530-TC; A4223; G0378; J0456; J0692; J0696; J1650; J3480; J7030; J7050; J7060